=== PATIENT | female | born 1965 | race Caucasian/White ===

== ENCOUNTER 2021-02-09 08:15 | Observation (INO) | payer BC, SELFPAY ==
[2021-02-09] VITALS (11 sets, daily range): BP systolic 116–159; BP diastolic 69–121; PULSE 52–76; RESP 13–19; TEMP 36.3–36.8; O2SAT 97–98; BMI 54.3
--- NOTE | ~2021-02-09 | XR_ITS ---
EXAMINATION: XR chest 2V DATE: 02/09/2021 08:47 INDICATION: Chest pain. TECHNIQUE: Frontal and lateral views of the chest were obtained. COMPARISON: Chest 2 views 12/03/2018 FINDINGS: The chest demonstrates clear lungs without pneumonia, pleural effusion, or pneumothorax. Th e heart size is normal. IMPRESSION: 1. No acute cardiopulmonary disease. Reviewed, dictated and finalized at location B.
--- NOTE | 2021-02-09 08:23 | ECG_ITS ---
Measurements Intervals [place] Rate: 63 P: 34 VT: 173 QRS: 3 QRSD: 101 T: 40 QT: 398 QTc: 408 Interpretive Statements SINUS RHYTHM LOW QRS VOLTAGE IN PRECORDIAL LEADS INCOMPLETE RIGHT BUNDLE BRANCH BLOCK BORDERLINE R WAVE PROGRESSION, ANTERIOR LEADS BORDERLINE ST-T WAVE ABNORMALITY- LATERAL LEADS BASELINE ARTIFACT- I, III, AVL BORDERLINE ECG Electronically Signed On 02-09-2021 8:32:42 CDT by Andrea Greco D.O.
[2021-02-09 08:47] LABS: Basophils Percent Auto 0.3 % (0.2-1.2); Eosinophils Absolute Auto 0.1 K/mm3 (0-0.3); Eosinophils Percent Auto 0.7 % (0-4.4); Hematocrit 39.7 % (37.0-47.0); Hemoglobin 13.2 g/dL (12.0-15.0); Immature Granulocyte Absolute 0.04 K/mm3 (0.00-0.031); Immature Granulocyte Percent A 0.6 % (0-0.5); Lymphocytes Absolute Auto 2.15 K/mm3 (0.9-3.2); Lymphocytes Percent Auto 31.6 % (18.3-44.2); Mean Corpuscular HGB Conc 33.2 g/dl (32-36); Mean Corpuscular Hemoglobin 29.5 pg (26-34); Mean Corpuscular Volume 88.6 fl (80-100); Mean Platelet Volume 10.3 fl (7.4-10.4); Monocytes Absolute Auto 0.5 K/mm3 (0.1-0.6); Monocytes Percent Auto 6.9 % (2.6-8.5); Neutrophils Absolute Auto 4.1 K/mm3 (1.3-6.7); Neutrophils Percent Auto 59.9 % (45.5-73.1); Platelet Count Result 156 k/mm3 (150-375); Red Blood Count 4.48 M/mm3 (4.2-5.4); Red Cell Distribution Width 12.7 % (11.5-14.5); White Blood Count 6.8 K/mm3 (4.5-10.0)
[2021-02-09 08:58] LABS: D Dimer 0.51 ug/mL (<0.48)
[2021-02-09 08:59] LABS: INR 0.9
[2021-02-09 09:00] LABS: Anion Gap 7 mmol/L (8-16); Blood Urea Nitrogen 14 mg/dL (7-17); Calcium 9.5 mg/dL (8.4-10.2); Carbon Dioxide 30 mmol/L (22-30); Chloride 104 mmol/L (98-107); Estimated CRCL calculation 114 ml/min; Estimated Glomerular Filt Rate > 60; Glucose 108 mg/dL (65-105); Partial Thromboplastin Time 29.8 SECONDS (22.3-36.8); Potassium 4.2 mmol/L (3.4-5.0); Sodium 141 mmol/L (137-145)
[2021-02-09 09:14] LABS: Troponin I < 0.012 ng/mL (0.000-0.034)
--- NOTE | 2021-02-09 09:40 | ED.CHESTPAIN ---
HPI - Chest Pain General Chief Complaint: Chest Pain Stated Complaint: CP Time Seen by Provider: 02/09/21 08:25 Source: patient and RN notes reviewed Mode of arrival: ambulatory Limitations: no limitations History of Present Illness HPI narrative: Patient is 56 years old white female presented to the ED with intermittent retrosternal chest pain radiating to left chest pressure type, fullness like. Usually last for few seconds at rest or on exertion. Started 4 days ago Patient is morbidly obese, takes medicine for hypertension, hyperlipidemia, her father of a heart attack at age 56. Patient also have a lot of stress lately. Patient denies any fever, chills, nausea, vomiting, shortness of breath. Patient does not smoke and drinks occasionally. Related Data Home Medications Medication Instructions Recorded Confirmed ciprofloxacin HCl 02/09/21 lisinopril 02/09/21 metronidazole 02/09/21 sertraline mg 02/09/21 simvastatin mg 02/09/21 Allergies Allergy/AdvReac Type Severity Reaction Status Date / Time No Known Allergies Allergy Verified 02/09/21 08:30 Review of Systems Review of Systems: Narrative: CONSTITUTIONAL: Denies fever, chills, or sweats. EYES: Denies visual changes, redness, or discharge. ENT: Denies rhinorrhea, congestion, sore throat, or otalgia. CARDIOVASCULAR: Denies chest pain, palpitations, or edema. RESPIRATORY: Denies cough or dyspnea. GASTROINTESTINAL: Denies abdominal pain, nausea, vomiting, or diarrhea. GENITOURINARY: Denies dysuria or hematuria. SKIN: Denies rash or itching. MUSCULOSKELETAL: Denies back pain, joint pain, or myalgia. NEUROLOGIC: Denies headache, numbness, or weakness. PSYCHIATRIC: a lot of stress and depression lately Exam Narrative: Exam Narrative: General appearance: Well-developed, well-nourished, morbidly obese Skin: Normal color Head: Normocephalic, nontraumatic Eyes: Clear conjunctiva ENT: Oropharynx normal, ears normal, nose normal Neck: Supple, nontender Chest and respiratory: Airway patent, no respiratory distress, no accessory muscle use, slight tenderness left chest, no bruises, no swelling or rash Heart: Regular rate/rhythm Abdomen: Soft, nontender, no organomegaly, quiet bowel sounds Vascular: Normal peripheral pulses, normal capillary refill. Musculoskeletal: Normal range of motion, nontender back Neurologic: Alert and oriented ?3, [employer] is normal as tested, no gross motor deficit Course Course Emergency Course: Stable Vital Signs Vital signs: Vital Signs Temperature 36.8 C 02/09/21 08:18 Pulse Rate 63 02/09/21 08:18 Respiratory Rate 15 02/09/21 08:18 Blood Pressure 147/79 H 02/09/21 08:18 Pulse Oximetry 97 02/09/21 08:18 Temperature 36.8 C 02/09/21 08:18 Pulse Rate 56 L 02/09/21 09:36 Respiratory Rate 19 02/09/21 09:36 Blood Pressure 159/121 H 02/09/21 09:36 Pulse Oximetry 98 02/09/21 09:36 MDM - Chest Pain MDM Narrative Medical decision making narrative: Patient presents with intermittent chest pain for the last 4 days. Have a lot of coronary risk factors. Admission to chest pain center is my plan. Labs, chest x-ray, aspirin and Lopressor was orally ordered. Further plan to follow Differential Diagnosis Differential diagnosis: Likely pneumothorax, stable angina, atypical chest pain, costochondritis, chest pain and other (Anxiety, depression inducing chest pain) Lab Data Result diagrams: 02/09/21 08:38 02/09/21 08:38 Labs: Lab Results 02/09/21 02/09/21 02/09/21 Range/Units 08:38 08:38 08:38 WBC 6.8 (4.5-10.0) K/mm3 RBC 4.48 (4.2-5.4) M/mm3 Hgb 13.2 (12.0-15.0) g/dL Hct 39.7 (3
[2021-02-09] MEDS: METOPROLOL TARTRATE 50 MG TAB 25 MG PO (09:50)
[2021-02-09] MEDS: ASPIRIN 81 MG CHEWABLE TABLET 324 MG PO (09:53)
[2021-02-09 12:11] LABS: Troponin I < 0.012 ng/mL (0.000-0.034)
--- NOTE | 2021-02-09 13:24 | PC.NURSE ---
called chest pain center to give report. nurse unavailable at this time and will call back.
--- NOTE | 2021-02-09 13:32 | PM.CNCAR ---
Assessment and Plan Assessment and plan (1) Chest pain: Qualifiers: Chest pain type: unspecified Qualified Code(s): R07.9 - Chest pain, unspecified Code(s): R07.9 - Chest pain, unspecified Status: Acute Assessment and Plan: Her chest pain is atypical and she is not experiencing chest pain at this time. EKG does not show any evidence of ischemia. Troponin levels are negative times 2 with the 3rd level pending. She does have some risk factors for cardiovascular disease. We would like to pursue an ischemic workup with a cardiac CT which will be done another [facility]. If her 3rd troponin level comes back negative she can be discharged home as we will pursue further workup as an outpatient. She may be experiencing some GERD symptoms. Will prescribe PPI. (2) Hyperlipidemia: Code(s): E78.5 - Hyperlipidemia, unspecified Status: Acute Assessment and Plan: On statin. This is followed by her primary care doctor. (3) Hypertension: Code(s): I10 - Essential (primary) hypertension Status: Acute Assessment and Plan: She is currently at goal. Continue lisinopril 10 mg daily. Encouraged lifestyle modifications. (4) Anxiety: Code(s): F41.9 - Anxiety disorder, unspecified Status: Acute Assessment and Plan: On sertraline. (5) Murmur, cardiac: Code(s): R01.1 - Cardiac murmur, unspecified Status: Acute Assessment and Plan: She has a grade II/ systolic murmur. We will arrange for her to have an echocardiogram as an outpatient to evaluate this murmur finding. History of Present Illness History of Present Illness Consult date/time: 02/09/21 13:32 cardiology consult for chest pain. Patient is a 56-year-old female with a past medical history of hypertension, hyperlipidemia, anxiety. She presented to the emergency department today following 3 days of intermittent chest pain. She states that she began noticing pain for the 1st time on Saturday evening. Pain is located in her epigastric area and extends over to her left chest. Describes the pain as a ?fullness? and says that the pain will last for about 15 seconds and subside spontaneously. She denies radiation of the pain into her neck, jaw, arm. She denies any associated shortness of breath, nausea, diaphoresis with these episodes of chest pain. Currently, she is not having any chest discomfort. The patient was having similar symptoms 2 years ago and was admitted to the hospital for an ischemic evaluation. She underwent a Lexiscan nuclear stress test at that time which according to the patient was normal. Additionally, she states that 16 years ago she underwent a left heart catheterization due to complaints of chest pain. This testing was also negative. She states that she has a family history of heart disease, noting that her father at a relatively young age due to sudden cardiac . Due to that she has an increased level of concern surrounding her symptoms. She also notes that she has a moderate amount of anxiety which she believes might be contributing to her chest pain. Personally, she does have several risk factors for cardiovascular disease including hypertension, hyperlipidemia, obesity. Reason For Visit: chest pain,anxiety,morbid obesity Review of Systems Review of Systems: All systems reviewed & are unremarkable except as noted in HPI and below Constitutional: Constitutional: Reports as per HPI, Reports no additional constitutional complaints, Denies fatigue, Denies lethargy and Denies weakness Eyes: Eyes: Reports as per HPI and Denies blurry vision ENT: Reports as per HPI, Reports Normal hearing present and Denies nasal discharge Cardiovascular: Cardiovascular: Reports as per HPI, Reports no additional cardiovascular complaints, Reports chest pain, Denies leg edema, Denies lightheadedness and Denies palpitations Respiratory: Respirator
--- NOTE | 2021-02-09 14:05 | ADMGEN ---
This patient, Jacquelin Koch, was [facility] Patient/family oriented to hospital policies and general routines including ID bracelet, bed and alarms, visiting hours, pain management, procedures, bathroom and other care routines, personal items, smoking policy, room service/diet, and visiting hours. DENIES CP OR SOB ON ARRIVAL TO [facility]. Information on how to activate the Rapid Response Team has been discussed. Patient/Family are encouraged to report perceived risks to care and to ask questions if they do not understand what they are told or what they should do.
--- NOTE | 2021-02-09 14:52 | PC.NURSE ---
DR. LOVELACE HERE TO SEE PT AT BEDSIDE.
--- NOTE | 2021-02-09 15:15 | ECG_ITS ---
Measurements Intervals [place] Rate: 55 P: 25 GA: 175 QRS: 2 QRSD: 109 T: 30 QT: 446 QTc: 428 Interpretive Statements SINUS BRADYCARDIA LOW QRS VOLTAGE IN PRECORDIAL LEADS INCOMPLETE RIGHT BUNDLE BRANCH BLOCK BORDERLINE ECG Electronically Signed On 02-09-2021 16:20:56 CDT by Andrea Greco D.O.
[2021-02-09 15:59] LABS: Troponin I < 0.012 ng/mL (0.000-0.034)
--- NOTE | 2021-02-09 16:05 | PC.NURSE ---
DR. LOVELACE NOTIFIED OF NEGATIVE 3RD TROPONIN AND EKG COMPLETED.
--- NOTE | 2021-02-09 17:25 | PC.NURSE ---
DISCHARGED HOME, OUT AMBULATORY W/ SON AT SIDE W/ ALL PERSONAL BELONGINGS AND DISCHARGE PACKET. STEADY. DENIES CP OR SOB. VOICES NO C/O. NO DISTRESS NOTED.
--- NOTE | 2021-02-24 20:58 | PM.SD2 ---
Same Day Admit/Disch: HPI History of Present Illness Chief complaint: chest pain,anxiety,morbid obesity Narrative: Jacquelin Koch is a 56 year old female with hypertension and hyperlipidemia who is admitted with brief but recurring atypical chest and epigastric discomfort. she also has a history of sudden cardiac in her father. [facility] Past Medical History Medical History (Updated 02/24/21 @ 21:04 by Mary Jane Fatima MD) Hyperlipidemia Hypertension Murmur, cardiac Family History Family History (Updated 02/24/21 @ 21:04 by Mary Jane Fatima MD) Father Acute myocardial infarction heart attack versus sudden cardiac Mother Multiple myeloma Social History Social History Smoking packs per day: 1 Smoking cigarettes per day: 20.0 Years smoked: 3 Smoking pack-years: 3.00 Smoking status: Former smoker Tobacco type: cigarettes Second hand tobacco smoke exposure: Yes Smoking end date: 01/15/92 Additional smoking assessment comments: QUIT SMOKING 1991. 1PPD X 6 YEARS. Alcohol intake: current Drinks per week: 1 Substance use: never Substance use type: does not use Living arrangements: with family Additional living arrangements comments: LIVES W/ AND DAUGHTER. Gender identity (if verbalized by the patient): Female Spiritual care concerns: No Same Day Admit/Disch: Med Pre-admit Medications Home Medications Medication Instructions Recorded Confirmed Type aspirin 81 mg PO DAILY 02/09/21 02/09/21 History lisinopril 10 mg PO DAILY 02/09/21 02/09/21 History pantoprazole 20 mg PO QAM 30 Days #30 tablet 02/09/21 Rx sertraline 100 mg PO DAILY 02/09/21 02/09/21 History simvastatin 20 mg PO DAILY 02/09/21 02/09/21 History Exam Narrative: Exam Narrative: see admission note DS: Data Additional Comments Additional comments: see admission note DS: Summary Time Spent with Patient Time attestation: Total time spent providing and/or coordinating discharge services: DS: Admitting Diagnosis Admitting Diagnosis Admitting Diagnosis: 56 y.o. patient history of hypertension and hyperlipidemia was admitted with some epigastric and chest discomfort which was atypical. EKG showed no ischemia and troponins were negative. I felt this was noncardiac, probably GI. With however we can evaluate her further for early coronary disease with a cardiac CTA. I recommend she be discharged on a PPI. In addition she has a heart murmur and I recommended an outpatient echo to evaluate for any aortic valve disease, bicuspid valve, HOCM cetera. DS: Discharge Diagnosis Discharge Diagnosis (1) Chest pain: Qualifiers: Chest pain type: unspecified Qualified Code(s): R07.9 - Chest pain, unspecified Code(s): R07.9 - Chest pain, unspecified Status: Acute (2) Hypertension: Code(s): I10 - Essential (primary) hypertension Status: Acute (3) Hyperlipidemia: Code(s): E78.5 - Hyperlipidemia, unspecified Status: Acute (4) Murmur, cardiac: Code(s): R01.1 - Cardiac murmur, unspecified Status: Acute Discharge Plan Discharge Attending physician on discharge: Mary Jane Fatima Consulting providers: Erica Donovan ; Andrea Greco ; Serg Altman V. Discharging Clinician: Erica Donovan Patient Disposition: Home, Self-Care Activity: no preference Diet: heart healthy and low cholesterol Discharge Instructions: Call your local emergency number (911 in the [place]) or have someone call if you have any of the following signs of a heart attack: -Squeezing, pressure, or pain in your chest -Discomfort or pain in your back, neck, jaw, stomach, or arm -Shortness of breath -Nausea or vomiting -Lightheadedness or a sudden cold sweat Return to the emergency department if: -You have chest discomfort that gets worse, even with medicine. -You cough
== END 2021-02-09 17:25 | disposition home or self-care (01) ==
LOC: ANHED 09:48 → ANHCPC 12:48
PROVIDERS: Admitting Provider Internal Medicine Cardiovascular Disease; Emergency Provider Emergency Medicine; PCP Family Medicine; Visit Provider Internal Medicine Cardiovascular Disease
DX: R07.9 Chest pain, unspecified (principal); I10 Essential (primary) hypertension; E78.5 Hyperlipidemia, unspecified; E78.00 Pure hypercholesterolemia, unspecified; Z82.49 Family history of ischemic heart disease and other diseases of the circulatory system; F41.9 Anxiety disorder, unspecified; R01.1 Cardiac murmur, unspecified; E66.01 Morbid (severe) obesity due to excess calories; Z68.43 Body mass index [BMI] 50.0-59.9, adult; Z87.891 Personal history of nicotine dependence; Z79.82 Long term (current) use of aspirin
CPT/HCPCS: 36415; 71046; 80048; 84484; 85025; 85380; 85610; 85730; 93005; 99285; A9270; G0378